=== PATIENT | female | born 1960 | race Caucasian/White ===

== ENCOUNTER → 2017-01-13 | Outpatient (CLI) | payer BC | LOC: MC.RAD 07:56 | DX: Z12.31 Encounter for screening mammogram for malignant neoplasm of breast (principal); Z80.3 Family history of malignant neoplasm of breast ==

== ENCOUNTER → 2017-12-22 | Outpatient (CLI) | payer BC | LOC: MC.RAD 06:59 | DX: Z12.31 Encounter for screening mammogram for malignant neoplasm of breast (principal) ==

== ENCOUNTER → 2018-04-24 | Outpatient (CLI) | payer BC | LOC: COL.RAD 13:31 | DX: R06.02 Shortness of breath (principal); R49.0 Dysphonia; R09.89 Other specified symptoms and signs involving the circulatory and respiratory systems; J98.4 Other disorders of lung | CPT/HCPCS: Q9967 ==